=== PATIENT | female | born 1990 | race Caucasian/White ===

== ENCOUNTER 2020-01-27 06:40 | Emergency (ER) | payer SELFPAY ==
[~2020-01-27] VITALS: Ht 160 cm; Wt 81.0 kg
[2020-01-27] MEDS ORDERED: MORPHINE SULFATE 2 MG/ML CPJ (NOT FOR IM USE) IV ONE (07:00)
[2020-01-27] MEDS ORDERED: LIDOCAINE HCL 1% 20ML VIAL (Pyxis) INJ INFIL ONE (07:00)
[2020-01-27] MEDS ORDERED: TETANUS, DIPHTHERIA, PERTUSSIS VAC/PF 0.5ML (>7YR OLD) IM ONE (07:00)
[2020-01-27 07:06] VITALS: BP 125/81
[2020-01-27] MEDS ORDERED: AMPICILLIN SOD/SULBACTAM NA 3 G in SODIUM CHLORIDE 0.9% 100 ML IV SCH (07:45)
[2020-01-27] MEDS ORDERED: BACITRACIN ZINC OINT UDPKT TOP ONE ×2 (08:45→09:15)
[2020-01-27] MEDS ORDERED: KETOROLAC 30MG/ML VIAL IV ONE (09:00)
== END 2020-01-27 09:46 | disposition home or self-care (01) ==
LOC: ER 06:58
DX: S62.604A Fracture of unspecified phalanx of right ring finger, initial encounter for closed fracture (principal); S61.214A Laceration without foreign body of right ring finger without damage to nail, initial encounter; S67.194A Crushing injury of right ring finger, initial encounter; W18.39XA Other fall on same level, initial encounter; Y93.89 Activity, other specified; Y92.89 Other specified places as the place of occurrence of the external cause; Y99.8 Other external cause status
CPT/HCPCS: 12002; 73130; 90471; 90715; 96365; 96375; 99283; J0295; J1885; J2270; J3490; J7050